=== PATIENT | male | born 2000 | race Caucasian/White ===

== ENCOUNTER 2018-03-22 16:28 | Emergency (ER) | payer OTHER ==
[~2018-03-22] VITALS: Ht 167.6 cm; Wt 65.9 kg
[~2018-03-22 16:28] MED LIST: ARIP10TA8 PO; INSLAN SQ
[2018-03-22 17:03] LABS: BASOPHILS % (AUTO) 0.2 % (0.0-2.0); EOSINOPHILS % (AUTO) 1.1 % (1.0-6.0); HEMATOCRIT 43.2 % (41-53); HEMOGLOBIN 14.8 g/dL (13.5-17.5); LYMPHOCYTES # (AUTO) 1.5 K/uL (1.0-4.8); LYMPHOCYTES % (AUTO) 15.2 % (22.0-44.0); MEAN CORPUSCULAR HEMOGLOBIN 29.1 pg (26.0-34.0); MEAN CORPUSCULAR HGB CONC 34.2 G/dL (31.0-37.0); MEAN CORPUSCULAR VOLUME 85 fL (80-100); MONOCYTES # (AUTO) 0.6 K/uL (0.1-1.0); MONOCYTES % (AUTO) 5.5 % (2.0-9.0); NEUTROPHILS # (AUTO) 7.9 K/uL (1.8-7.7); PLATELET COUNT (AUTO) 242 K/uL (150-450); RED BLOOD CELL COUNT(AUTO) 5.08 MIL/uL (4.50-5.90); RED CELL DISTRIBUTION WIDTH 14.2 % (11.5-14.5)
[2018-03-22] MEDS ORDERED: MYCOPHENOLATE PO (17:03)
[2018-03-22] MEDS ORDERED: SODI650T PO (17:03)
[2018-03-22] MEDS ORDERED: ATOR20TA86 PO (17:03)
[2018-03-22] MEDS ORDERED: PRED5 PO (17:03)
[2018-03-22] MEDS ORDERED: LISI-662 PO (17:03)
[2018-03-22] MEDS ORDERED: RANI150C4 PO (17:03)
[2018-03-22] MEDS ORDERED: FERR325T22 PO (17:03)
[2018-03-22] MEDS ORDERED: TRACOLIMUS PO (17:03)
[2018-03-22] MEDS ORDERED: TACR1 PO (17:08)
[2018-03-22] MEDS ORDERED: MYCO250C7 PO (17:08)
[2018-03-22 17:09] LABS: GLUCOSE,POINT OF CARE 347 MG/DL (70-110)
[2018-03-22 17:19] LABS: ANION GAP 18 mmol/L (8-16); CALCIUM, TOTAL 9.3 mg/dL (8.8-10.5); CARBON DIOXIDE 17 mmol/L (22-29); CHLORIDE 100 mmol/L (98-107); CREATININE 1.73 mg/dL (0.60-1.30); GLOMERULAR FILTR. RATE CALC 51 mL/min (>60); GLUCOSE,RANDOM 357 mg/dL (70-110); POTASSIUM 4.2 mmol/L (3.5-5.1); SODIUM SERUM 135 mmol/L (136-145); UREA NITROGEN, BLOOD 25 mg/dL (7-18)
[2018-03-22 17:25] LABS: ALANINE AMINOTRANSFERASE 27 U/L (12-78); ALBUMIN 3.6 g/dL (3.4-5.0); ALKALINE PHOSPHATASE 128 U/L (46-116); ASPARTATE AMINOTRANSFERASE 18 U/L (15-37); BILIRUBIN,TOTAL 0.3 mg/dL (0.1-1.0)
[2018-03-22 19:53] VITALS: BP 135/75
== END 2018-03-22 20:14 | disposition home or self-care (01) ==
LOC: EMS 16:29
DX: R45.851 Suicidal ideations (principal); R44.0 Auditory hallucinations; E11.65 Type 2 diabetes mellitus with hyperglycemia; M79.10 Myalgia, unspecified site; F31.9 Bipolar disorder, unspecified; I10 Essential (primary) hypertension; F12.90 Cannabis use, unspecified, uncomplicated; Z94.0 Kidney transplant status; Z79.4 Long term (current) use of insulin; Z79.899 Other long term (current) drug therapy
CPT/HCPCS: 36415; 80053; 82962; 85025; 99285; G0480

== ENCOUNTER 2019-04-26 17:46 | Inpatient (IN) | payer MEDICAID, OTHER ==
[~2019-04-26] VITALS: Ht 162.6 cm; Wt 64.0 kg
[~2019-04-26 17:46] MED LIST changes: +ATOR20TA86 PO; +FERR325T22 PO; +LISI-662 PO; +MYCO250C7 PO; +PRED5 PO; +RANI150C4 PO; +SODI650T PO; +TACR1 PO
[2019-04-26 19:00] LABS: APPEARANCE,URINE CLEAR (CLEAR); BILIRUBIN,URINE NEGATIVE (NEGATIVE); GLUCOSE, URINE (UA) >=1000 mg/dL (NEGATIVE); KETONES,URINE NEGATIVE (NEGATIVE); LEUKOCYTE ESTERASE ,URINE NEGATIVE (NEGATIVE); NITRATE,URINE NEGATIVE (NEGATIVE); OCCULT BLOOD,URINE NEGATIVE (NEGATIVE); PROTEIN,URINE SEE CONFIRM (NEGATIVE); UROBILINOGEN,URINE 0.2 mg/dL (<=1.0)
[2019-04-26 19:06] LABS: AMPHET/METH SCREEN,URINE NEGATIVE (NEGATIVE); BARBITURATE SCREEN, URINE NEGATIVE (NEGATIVE); BENZODIAZEPINES SCREEN,URINE NEGATIVE (NEGATIVE); CANNABINOID SCREEN,URINE POSITIVE (NEGATIVE); COCAINE SCREEN,URINE NEGATIVE (NEGATIVE); METHADONE SCREEN, URINE NEGATIVE (NEGATIVE); OPIATE SCREEN,URINE NEGATIVE (NEGATIVE)
[2019-04-26 19:13] LABS: ALANINE AMINOTRANSFERASE 30 U/L (12-78); ALBUMIN 4.3 g/dL (3.4-5.0); ALKALINE PHOSPHATASE 153 U/L (46-116); ANION GAP 15 mmol/L (8-16); ASPARTATE AMINOTRANSFERASE 14 U/L (15-37); BILIRUBIN,TOTAL 0.5 mg/dL (0.1-1.0); CALCIUM, TOTAL 9.8 mg/dL (8.8-10.5); CARBON DIOXIDE 21 mmol/L (22-29); CHLORIDE 93 mmol/L (98-107); CREATININE 1.68 mg/dL (0.60-1.30); GLOMERULAR FILTR. RATE CALC 52 mL/min (>60); POTASSIUM 4.2 mmol/L (3.5-5.1); SODIUM SERUM 129 mmol/L (136-145); TOTAL PROTEIN, SERUM 9.1 g/dL (6.4-8.2); UREA NITROGEN, BLOOD 25 mg/dL (7-18)
[2019-04-26 19:15] LABS: PHENCYCLIDINE SCREEN,URINE NEGATIVE (NEGATIVE)
[2019-04-26 19:16] LABS: SULFOSALICYLIC ACID,URINE 4+ (Negative)
[2019-04-26 19:17] LABS: BACTERIA,URINE None Seen /HPF (None Seen); RBC,URINE None Seen /HPF (0-2); SQUAMOUS EPITHELIAL CELL,UR Rare /LPF (None Seen); WBC,URINE None Seen /HPF (0-5)
[2019-04-26 19:19] LABS: GLUCOSE,RANDOM 544 mg/dL (70-110)
[2019-04-26] MEDS ORDERED: HALOPERIDOL 5 MG TABLET PO PRN (20:00)
[2019-04-26] MEDS ORDERED: ZOLPIDEM TARTRATE 10 MG TABLET PO PRN (20:00)
[2019-04-26 21:14] LABS: BASOPHILS % (AUTO) 0.3 % (0.0-2.0); EOSINOPHILS % (AUTO) 1.3 % (1.0-6.0); HEMATOCRIT 48.2 % (41-53); HEMOGLOBIN 16.3 g/dL (13.5-17.5); LYMPHOCYTES # (AUTO) 2.9 K/uL (1.0-4.8); LYMPHOCYTES % (AUTO) 31.1 % (22.0-44.0); MEAN CORPUSCULAR HEMOGLOBIN 29.6 pg (26.0-34.0); MEAN CORPUSCULAR HGB CONC 33.9 G/dL (31.0-37.0); MEAN CORPUSCULAR VOLUME 87 fL (80-100); MONOCYTES # (AUTO) 0.7 K/uL (0.1-1.0); NEUTROPHILS # (AUTO) 5.5 K/uL (1.8-7.7); NEUTROPHILS % (AUTO) 59.3 % (40.0-70.0); PLATELET COUNT (AUTO) 278 K/uL (150-450); RED BLOOD CELL COUNT(AUTO) 5.51 MIL/uL (4.50-5.90); RED CELL DISTRIBUTION WIDTH 13.4 % (11.5-14.5)
[2019-04-26] MEDS ORDERED: NICOTINE 21 MG/24 HOUR PATCH TD ONE (21:15)
[2019-04-26] MEDS ORDERED: INSULIN REGULAR, HUMAN 100 UNITS/ML IVP ONE (21:45)
[2019-04-26] MEDS ORDERED: INSULIN REGULAR, HUMAN 100 UNITS/ML SQ ONE (21:45)
[2019-04-26] MEDS ORDERED: INSULIN LISPRO 100 UNITS/ML SQ PRN (21:45)
[2019-04-26] MEDS ORDERED: DEXTROSE 50%-WATER 25 GM/50 ML SYRINGE IVP PRN (21:45)
[2019-04-26] MEDS: INSULIN HUMAN NPH-REGULAR 70/30 100 UNITS/ML SQ ONE ×2 (21:47→22:00)
[2019-04-26 23:01] LABS: GLUCOSE,POINT OF CARE 430 MG/DL (70-110)
[2019-04-27 01:38] VITALS: BP 129/79
[2019-04-27 05:54] LABS: GLUCOMETER DEV NAME(LOC) 3E.I 2; GLUCOSE,POINT OF CARE 331 MG/DL (70-110)
[2019-04-27 07:23] LABS: CHOL/HDL RATIO 5.9 (4.2-7.3); CHOLESTEROL 237 mg/dL (131-200); HDL CHOLESTEROL 40 mg/dL (40-60); TRIGLYCERIDES 553 mg/dL (15-150)
[2019-04-27 09:17] VITALS: BP 122/55
[2019-04-27] MEDS ORDERED: ACETAMINOPHEN 325 MG TABLET PO PRN (09:45)
[2019-04-27] MEDS ORDERED: IBUPROFEN 400 MG TABLET PO PRN (09:45)
[2019-04-27] MEDS ORDERED: GuaiFENesin/D-METHORPHAN [SUGAR-FREE] 200-20MG/10 ML SYRUP UDCUP PO PRN (09:45)
[2019-04-27] MEDS ORDERED: LOPERAMIDE HCL 2 MG CAPSULE PO PRN (09:45)
[2019-04-27] MEDS ORDERED: MAG HYDROX/AL HYDROX/SIMETH ES 30 ML SUSPENSION UDCUP PO PRN (09:45)
[2019-04-27] MEDS ORDERED: ALBUTEROL SULFATE HFA 90 MCG/PUFF 8 GM INHALER IH PRN (09:45)
[2019-04-27] MEDS ORDERED: PETROLATUM,WHITE 28 GM JELLY TP PRN (09:45)
[2019-04-27] MEDS ORDERED: CloNIDine HCL 0.1 MG TABLET PO PRN (09:45)
[2019-04-27] MEDS ORDERED: INSULIN LISPRO 100 UNITS/ML SQ PRN (09:45)
[2019-04-27] MEDS ORDERED: DOCUSATE SODIUM 100 MG CAPSULE PO PRN (09:45)
[2019-04-27] MEDS ORDERED: MAGNESIUM HYDROXIDE SUSPENSION 30 ML UDCUP PO PRN (09:45)
[2019-04-27] MEDS ORDERED: DEXTROSE 50%-WATER 25 GM/50 ML SYRINGE IVP PRN (09:45)
[2019-04-27] MEDS ORDERED: ONDANSETRON HCL 4 MG TABLET PO PRN (09:45)
[2019-04-27] MEDS: NICOTINE 14 MG/24 HOUR PATCH TD PRN (10:40)
[2019-04-27 11:16] LABS: GLUCOMETER DEV NAME(LOC) 3E.I 2; GLUCOSE,POINT OF CARE 409 MG/DL (70-110)
[2019-04-27] MEDS ORDERED: GLUCAGON,HUMAN RECOMBINANT 1 MG VIAL IM PRN (13:00)
[2019-04-27] MEDS ORDERED: INSULIN LISPRO 100 UNITS/ML SQ ONE ×2 (13:00→15:45)
[2019-04-27] MEDS: ARIPiprazole 5 MG TABLET PO SCH ×2 (13:19→20:27)
[2019-04-27] MEDS ORDERED: DEXTROSE 50%-WATER 25 GM/50 ML SYG IVP PRN (13:30)
[2019-04-27 15:31] LABS: GLUCOMETER DEV NAME(LOC) 3E.I 2; GLUCOSE,POINT OF CARE 418 MG/DL (70-110)
[2019-04-27] MEDS: SODIUM BICARBONATE 650 MG TABLET PO SCH (16:02)
[2019-04-27] MEDS: MYCOPHENOLATE MOFETIL 250 MG CAPSULE PO SCH (16:03)
[2019-04-27] MEDS: LORazepam 2 MG TABLET PO PRN (16:26)
[2019-04-27 17:00] VITALS: BP 114/58
[2019-04-27] MEDS: INSULIN LISPRO 100 UNITS/ML SQ PRN ×2 (17:37→20:38)
[2019-04-27 17:46] LABS: GLUCOMETER DEV NAME(LOC) 3E.I 2; GLUCOSE,POINT OF CARE 353 MG/DL (70-110)
[2019-04-27 20:45] LABS: GLUCOMETER DEV NAME(LOC) 3E.I 2; GLUCOSE,POINT OF CARE 227 MG/DL (70-110)
[2019-04-27] MEDS ORDERED: INSULIN GLARGINE,HUM.REC.ANLOG 100 UNITS/ML SQ SCH ×3 (21:00)
[2019-04-28] MEDS: LORazepam 2 MG TABLET PO PRN (05:08)
[2019-04-28 05:33] LABS: GLUCOMETER DEV NAME(LOC) 3E.I 2; GLUCOSE,POINT OF CARE 467 MG/DL (70-110)
[2019-04-28 05:39] VITALS: BP 118/67
[2019-04-28] MEDS ORDERED: INSULIN LISPRO 100 UNITS/ML SQ ONE (06:00)
[2019-04-28] MEDS: FERROUS SULFATE 325 MG EC TABLET PO SCH (06:40)
[2019-04-28] MEDS: ATORVASTATIN CALCIUM 20 MG TABLET PO SCH (08:48)
[2019-04-28] MEDS: ARIPiprazole 5 MG TABLET PO SCH ×2 (08:48→21:05)
[2019-04-28] MEDS: LISINOPRIL 20 MG TABLET PO SCH (08:49)
[2019-04-28] MEDS: PredniSONE 5 MG TABLET PO SCH (08:49)
[2019-04-28] MEDS: OMEGA-3/DHA/EPA/FISH OIL 1,000 MG CAPSULE PO SCH (08:49)
[2019-04-28] MEDS: SODIUM BICARBONATE 650 MG TABLET PO SCH ×2 (08:49→16:37)
[2019-04-28] MEDS: MYCOPHENOLATE MOFETIL 250 MG CAPSULE PO SCH ×2 (08:49→16:37)
[2019-04-28] MEDS ORDERED: INSULIN GLARGINE,HUM.REC.ANLOG 100 UNITS/ML SQ SCH (09:00)
[2019-04-28 09:18] LABS: GLUCOMETER DEV NAME(LOC) 3E.I 2; GLUCOSE,POINT OF CARE 319 MG/DL (70-110)
[2019-04-28 09:59] VITALS: BP 128/76
[2019-04-28 11:23] LABS: GLUCOMETER DEV NAME(LOC) 3E.I 2; GLUCOSE,POINT OF CARE 375 MG/DL (70-110)
[2019-04-28] MEDS: INSULIN LISPRO 100 UNITS/ML SQ PRN ×3 (12:23→21:09)
[2019-04-28 14:10] LABS: GLUCOMETER DEV NAME(LOC) 3E.I 2; GLUCOSE,POINT OF CARE 297 MG/DL (70-110)
[2019-04-28 16:20] VITALS: BP 107/54
[2019-04-28] MEDS: INSULIN GLARGINE,HUM.REC.ANLOG 100 UNITS/ML SQ SCH (16:29)
[2019-04-28 20:29] LABS: GLUCOMETER DEV NAME(LOC) 3E.I 2; GLUCOSE,POINT OF CARE 247 MG/DL (70-110)
[2019-04-28 20:44] VITALS: BP 123/73
[2019-04-28] MEDS: TACROLIMUS ANHYDROUS 1 MG CAPSULE PO SCH (21:53)
[2019-04-28] MEDS: TACROLIMUS ANHYDROUS 0.5 MG CAPSULE PO SCH (21:54)
[2019-04-29 05:38] LABS: GLUCOMETER DEV NAME(LOC) 3E.I 2; GLUCOSE,POINT OF CARE 304 MG/DL (70-110)
[2019-04-29] MEDS: FERROUS SULFATE 325 MG EC TABLET PO SCH (06:49)
[2019-04-29] MEDS: INSULIN LISPRO 100 UNITS/ML SQ PRN ×3 (06:50→17:23)
[2019-04-29] MEDS: TACROLIMUS ANHYDROUS 0.5 MG CAPSULE PO SCH (08:16)
[2019-04-29] MEDS: TACROLIMUS ANHYDROUS 1 MG CAPSULE PO SCH (08:17)
[2019-04-29] MEDS: PredniSONE 5 MG TABLET PO SCH (08:17)
[2019-04-29] MEDS: OMEGA-3/DHA/EPA/FISH OIL 1,000 MG CAPSULE PO SCH (08:17)
[2019-04-29] MEDS: MYCOPHENOLATE MOFETIL 250 MG CAPSULE PO SCH ×2 (08:17→16:33)
[2019-04-29] MEDS: ARIPiprazole 5 MG TABLET PO SCH (08:17)
[2019-04-29] MEDS: LISINOPRIL 20 MG TABLET PO SCH (08:18)
[2019-04-29] MEDS: SODIUM BICARBONATE 650 MG TABLET PO SCH ×2 (08:18→16:32)
[2019-04-29] MEDS: ATORVASTATIN CALCIUM 20 MG TABLET PO SCH (08:18)
[2019-04-29] MEDS: INSULIN GLARGINE,HUM.REC.ANLOG 100 UNITS/ML SQ SCH ×2 (08:33→17:05)
[2019-04-29 08:42] VITALS: BP 117/60
[2019-04-29 08:44] LABS: GLUCOMETER DEV NAME(LOC) 3E.I 2; GLUCOSE,POINT OF CARE 272 MG/DL (70-110)
[2019-04-29] MEDS: NICOTINE 14 MG/24 HOUR PATCH TD PRN (10:59)
[2019-04-29 11:07] LABS: GLUCOMETER DEV NAME(LOC) 3E.I 2; GLUCOSE,POINT OF CARE 232 MG/DL (70-110)
[2019-04-29] MEDS ORDERED: ARIP5TAB8 PO (11:07)
[2019-04-29] MEDS ORDERED: TACR1 PO (13:45)
[2019-04-29] MEDS ORDERED: OMEG-135 PO (13:45)
[2019-04-29] MEDS ORDERED: INSU100V SQ (13:45)
== END 2019-04-29 19:30 | disposition home or self-care (01) | DRG 885 ==
LOC: EMS 17:48 → 3EI 20:45
DX: F33.2 Major depressive disorder, recurrent severe without psychotic features (principal); E11.65 Type 2 diabetes mellitus with hyperglycemia; R45.851 Suicidal ideations; D64.9 Anemia, unspecified; E78.5 Hyperlipidemia, unspecified; F12.10 Cannabis abuse, uncomplicated; I10 Essential (primary) hypertension; Z79.4 Long term (current) use of insulin; Z79.52 Long term (current) use of systemic steroids; Z79.899 Other long term (current) drug therapy
CPT/HCPCS: G0480; J1815; J7507; J7517